=== PATIENT | female | born 1975 | race Two or more races ===

== ENCOUNTER 2022-01-10 12:08 | Emergency (ER) | payer MEDICARE, MEDICAID ==
[~2022-01-10] VITALS: Ht 160 cm; Wt 61.2 kg
[2022-01-10 12:38] VITALS: BP 128/88
[2022-01-10] MEDS ORDERED: TETANUS-DIPTH-ACEL PERTUSSIS 0.5ML SYR Tdap IM ONE (13:15)
[2022-01-10] MEDS ORDERED: AMOX500T86 PO (13:42)
[2022-01-10] MEDS ORDERED: NAPR500T31 PO (13:42)
== END 2022-01-10 13:47 | disposition home or self-care (01) ==
LOC: EDBD 12:08 → ER 12:08
DX: S61.253A Open bite of left middle finger without damage to nail, initial encounter (principal); S61.255A Open bite of left ring finger without damage to nail, initial encounter; S61.252A Open bite of right middle finger without damage to nail, initial encounter; S61.233A Puncture wound without foreign body of left middle finger without damage to nail, initial encounter; S61.235A Puncture wound without foreign body of left ring finger without damage to nail, initial encounter; S61.232A Puncture wound without foreign body of right middle finger without damage to nail, initial encounter; I10 Essential (primary) hypertension; Z79.2 Long term (current) use of antibiotics; Z79.899 Other long term (current) drug therapy; W54.0XXA Bitten by dog, initial encounter; Y93.89 Activity, other specified; Y92.89 Other specified places as the place of occurrence of the external cause; Y99.8 Other external cause status
CPT/HCPCS: 73120; 90471; 90715

== ENCOUNTER 2022-07-28 12:30 | Emergency (ER) | payer OTHER, MEDICAID ==
[~2022-07-28] VITALS: Ht 152.4 cm; Wt 62.0 kg
[~2022-07-28 12:30] MED LIST: AMOX500T86 PO; NAPR500T31 PO
[2022-07-28] MEDS ORDERED: methylPREDNISolone SOD SUCC 125 MG/2 ML VL IM ONE (17:00)
[2022-07-28] MEDS ORDERED: KETOROLAC TROMETH 30 MG/ML 1ML VIAL IM ONE (17:00)
[2022-07-28] MEDS ORDERED: CYCL-837 PO (20:18)
[2022-07-28] MEDS ORDERED: DICL75TA2 PO (20:18)
[2022-07-28 20:43] VITALS: BP 131/84
== END 2022-07-28 20:44 | disposition home or self-care (01) ==
LOC: ER 12:30
DX: M54.12 Radiculopathy, cervical region (principal); M50.321 Other cervical disc degeneration at C4-C5 level; I10 Essential (primary) hypertension; Z79.2 Long term (current) use of antibiotics; Z79.899 Other long term (current) drug therapy
CPT/HCPCS: 72040; 93005; 96372; 99284; J1885; J2930